=== PATIENT | male | born 2000 | race Hispanic/Latino ===

== ENCOUNTER 2024-10-04 21:18 | Emergency (ER) | payer SELFPAY ==
[2024-10-04 21:22] VITALS: BP 113/91; PULSE 75; RESP 17; TEMP 36.3; O2SAT 100
[2024-10-04 21:42] LABS: Basophils Percent Auto 0.4 % (0.2-1.2); Eosinophils Absolute Auto 0.1 K/mm3 (0-0.3); Eosinophils Percent Auto 1.9 % (0-4.4); Hematocrit 44.3 % (42.0-52.0); Immature Granulocyte Absolute 0.02 K/mm3 (0.00-0.031); Immature Granulocyte Percent A 0.3 % (0-0.5); Lymphocytes Absolute Auto 2.91 K/mm3 (0.9-3.2); Lymphocytes Percent Auto 40.5 % (18.3-44.2); Mean Corpuscular HGB Conc 36.1 g/dl (32-36); Mean Corpuscular Hemoglobin 31.4 pg (26-34); Mean Platelet Volume 9.2 fl (7.4-10.4); Monocytes Absolute Auto 0.6 K/mm3 (0.1-0.6); Monocytes Percent Auto 8.9 % (2.6-8.5); Neutrophils Absolute Auto 3.5 K/mm3 (1.3-6.7); Platelet Count Result 283 k/mm3 (150-375); Red Blood Count 5.09 M/mm3 (4.6-6.20); Red Cell Distribution Width 11.2 % (11.5-14.5); White Blood Count 7.2 K/mm3 (4.5-10.0)
[2024-10-04 21:50] LABS: Add Urine Microscopic? YES; Appearance Urine Turbid (Clear); Bacteria Urine None Seen /hpf; Bilirubin Urine Negative (Negative); Blood Urine Negative (Negative); Color Urine Yellow (Yellow); Glucose Urine UA Negative (Negative); Ketones Urine Trace mg/dL (Negative); Leukocyte Esterase Ur Negative LEU/UL (Negative); Nitrate Urine Negative (Negative); Non Pathogenic Casts 0-2; Protein Urine Negative (Negative); RBC Urine 0-2 /hpf (0-2); Specific Grav Ur 1.019 (1.001-1.035); Squamous Epithelial Cell Urine None Seen /hpf (Few); WBC Urine 0-5 /hpf (0-3)
[2024-10-04 21:53] LABS: Alanine Aminotransferase 20 U/L (6-50); Albumin Level 5.2 g/dL (3.5-5.1); Alkaline Phosphatase 80 U/L (38-126); Anion Gap 16 mmol/L (4-12); Aspartate Amino Transferase 31 U/L (17-59); Bilirubin,Total 1.3 mg/dL (0.2-1.3); Blood Urea Nitrogen 19 mg/dL (9-20); Calcium 9.9 mg/dL (8.4-10.2); Carbon Dioxide 22 mmol/L (22-30); Chloride 104 mmol/L (98-107); Estimated CRCL calculation 118 ml/min; Estimated Glomerular Filt Rate > 60; Glucose 98 mg/dL (65-110); Lipase 87 U/L (23-300); Potassium 3.6 mmol/L (3.4-5.0); Sodium 142 mmol/L (137-145)
[2024-10-05 01:29] VITALS: BP 117/87; PULSE 71; RESP 19; O2SAT 99
--- NOTE | 2024-10-05 02:43 | ED.GENADULT ---
HPI - General Adult General Chief complaint: Abdominal Pain Stated complaint: rt abd pain Time Seen by Provider: 10/05/24 01:25 History of Present Illness HPI narrative: Patient is a 24-year-old gentleman presents emergency department chief complaint of abdominal pain. The patient reports the last week he has been having pain in the left lower quadrant patient states got worse today the patient reports he has been treated for gastritis before in the past and reports that he had an issue of inflamed bowels whenever he was treated in [place] 2 years ago Related Data Allergies Allergy/AdvReac Type Severity Reaction Status Date / Time No Known Allergies Allergy Verified 10/04/24 21:26 Review of Systems Review of Systems: A 10 system review of systems was completed on the patient and is negative except for what is stated in the HPI. Nursing and ancillary documentation was reviewed. Exam Narrative: GENERAL: Well-appearing, well-nourished, and in no acute distress. HEAD: Normocephalic, atraumatic. EYES: PERRLA and EOMI. ENT: Nares clear, no rhinorrhea or epistaxis. Mucous membranes moist. NECK: Supple. CHEST: Clear to auscultation. No respiratory distress. HEART: Regular rate and rhythm. No murmur heard. Normal peripheral pulses. ABDOMEN: Soft, tenderness to palpation left lower quad, nondistended, normal active bowel sounds. EXTREMITIES: Normal range of motion. No edema. SKIN: Warm, dry, no rash. NEURO: No focal deficits. Alert and oriented x3. PSYCH: Normal mood and affect. Course Vital Signs Vital signs: Vital Signs Temperature 36.3 C L 10/04/24 21:22 Pulse Rate 75 10/04/24 21:22 Respiratory Rate 17 10/04/24 21:22 Blood Pressure 113/91 H 10/04/24 21:22 Pulse Oximetry 100 10/04/24 21:22 Oxygen Delivery Room Air 10/04/24 21:22 Temperature 36.3 C L 10/04/24 21:22 Pulse Rate 68 10/05/24 04:05 Respiratory Rate 15 10/05/24 04:05 Blood Pressure 120/83 10/05/24 04:05 Pulse Oximetry 100 10/05/24 04:05 Oxygen Delivery Room Air 10/04/24 21:22 Medical Decision Making [facility] Narrative Medical decision making narrative: Differential diagnosis includes diverticulitis, colitis, intra-abdominal infection, pancreatitis Laboratory studies were obtained on the patient that showed no significant abnormality CT scan of the abdomen pelvis showed no acute abnormality Vital Signs Vital Signs: Vital Signs Temperature 36.3 C L 10/04/24 21:22 Pulse Rate 75 10/04/24 21:22 Respiratory Rate 17 10/04/24 21:22 Blood Pressure 113/91 H 10/04/24 21:22 Pulse Oximetry 100 10/04/24 21:22 Oxygen Delivery Room Air 10/04/24 21:22 Temperature 36.3 C L 10/04/24 21:22 Pulse Rate 68 10/05/24 04:05 Respiratory Rate 15 10/05/24 04:05 Blood Pressure 120/83 10/05/24 04:05 Pulse Oximetry 100 10/05/24 04:05 Oxygen Delivery Room Air 10/04/24 21:22 Lab Data 10/04/24 21:31 10/04/24 21:31 Labs: Lab Results 10/04/24 10/04/24 Range/Units 21:31 21:35 WBC 7.2 (4.5-10.0) K/mm3 RBC 5.09 (4.6-6.20) M/mm3 Hgb 16.0 (14.0-18.0) g/dL Hct 44.3 (42.0-52.0) % MCV 87.0 (80-100) fl MCH 31.4 (26-34) pg MCHC 36.1 H (32-36) g/dl RDW 11.2 L (11.5-14.5) % Plt Count 283 (150-375) k/mm3 MPV 9.2 (7.4-10.4) fl Immature Gran % (Auto) 0.3 (0-0.5) % Neut % (Auto) 48.0 (45.5-73.1) % Lymph % (Auto) 40.5 (18.3-44.2) % Stewart % (Auto) 8.9 H (2.6-8.5) % Eos % (Auto) 1.9 (0-4.4) % Baso % (Auto) 0.4 (0.2-1.2) % Lymph # (Auto) 2.91 (0.9-3.2) K/mm3 Stewart # (Auto) 0.6 (0.1-0.6) K/mm3 Eos # (Auto) 0.1 (0-0.3) K/mm3 Baso # (Auto) 0.0 (0.0-0.1) K/mm3 Abs Immat Gran (auto) 0.02 (0.00-0.031) K/mm3 Absolute Neuts (auto) 3.5 (1.3-6.7) K/mm3 Absolute Nucleated RBC 0.000 (0.0-0.012) K/mm3 Nucleated RBC % 0.0 (0.0-0.2) % Sodium 142 (137-145) mmol/L Potassium 3.6 (3.4-5.0) mmol/L Chloride 104 (98-107) mmol/L Carbon Dioxide 22 (22-30) mmol/L Anion Gap 16 H (4-12) mmol/L BUN 19 (9-20) mg/dL Creatinine 0.68 L (0.7-1.3) mg/dL Estim Creat Clear Calc 118 ml/min Estimated GFR > 60 (59 - ) Glucose 98 (65-110) mg/dL Calcium 9.9 (8.4-10.2) mg/dL Total Bilirubin 1.3 (0.2-1.3) mg/dL AST 31 (17-59) U/L ALT 20 (6-50) U/L Alkaline Phosphatase 80 (38-126) U/L Total Protein 9.0 H (6.3-8.2) g/dL Albumin 5.2 H (3.5-5.1) g/dL Lipase 87 (23-300) U/L Urine Color Yellow (Yellow) Urine Appearance Turbid H (Clear) Urine pH 8.0 (5.0-9.0) Ur Specific [place] 1.019 (1.001-1.035) Urine Protein Negative (Negative) mg/dL Urine Glucose (UA) Negative (Negative) mg/dL Urine Ketones Trace H (Negative) mg/dL Ur Blood (Man) Negative (Negative) Urine Nitrate Negative (Negative) Urine Bilirubin Negative (Negative) Urine Urobilinogen 1.0 (<2.0) mg/dL Leukocyte Esterase Rfl Negative (Negative) SOPHIE/UL Urine RBC 0-2 (0-2) /hpf Urine WBC 0-5 (0-3) /hpf Ur Squamous Epith Cells None seen (Few) /hpf Urine Bacteria None seen /hpf Urine Casts 0-2 Discharge Plan Discharge Clinical Impression: Abdominal pain Patient Disposition: Home, Self-Care Condition: Stable Instructions: Antibiotic Form, Abdominal Pain (ED) Patient Language: Canadian Prescriptions: New dicyclomine 20 mg tablet 20 mg PO QID PRN (Reason: abdominal discomfort) Qty: 20 0RF ondansetron 4 mg tablet,disintegrating 4 mg PO Q8H PRN (Reason: nausea and vomiting) Qty: 10 0RF pantoprazole [Protonix] 40 mg tablet,delayed release (DR/EC) 40 mg PO HS 28 Days Qty: 28 0RF Follow-up/Referrals: PHYSICIAN,[employer] [Primary Care Provider] - Meliton King MD [Physician] - Time of Disposition: 05:28
[2024-10-05 04:05] VITALS: BP 120/83; PULSE 68; RESP 15; O2SAT 100
[2024-10-05 05:53] VITALS: BP 116/84; PULSE 65; RESP 19; O2SAT 99
== END 2024-10-05 05:56 | disposition home or self-care (01) ==
PROVIDERS: Emergency Provider Emergency Medicine
DX: R10.32 Left lower quadrant pain (principal)
CPT/HCPCS: 36415; 74177; 80053; 81001; 83690; 85025; 99284; Q9967

== ENCOUNTER 2025-08-01 01:51 | Emergency (ER) | payer SELFPAY ==
[2025-08-01 01:52] VITALS: BP 117/68; PULSE 100; RESP 18; TEMP 36.9; O2SAT 97
[2025-08-01 01:59] VITALS: BP 126/77; PULSE 92; RESP 18; TEMP 37.7; O2SAT 100
--- NOTE | 2025-08-01 02:21 | ED_ITS ---
HPI - General Adult General Chief complaint: Dental/Oral Stated complaint: Throat irritation, fever, mouth sores, flu? Time Seen by Provider: 08/01/25 01:58 History of Present Illness HPI narrative: 25-year-old otherwise healthy male presenting to the emergency depart with sore throat, pain in his left side throat tonsils as well as exposure to sick contacts with flu-like symptoms. Symptoms going on with 2 days time. States he has had fever at home responsive to Tylenol. States he had some sweats earlier but that resolved. No other symptoms such as cough, shortness a breath, nausea, vomiting, headache, vision changes. He noticed some sores in the back of his mouth on the left tonsil. Some pain with swallowing from this. Was otherwise in his normal state of health. No rash in his arms legs face or back. Related Data Allergies Allergy/AdvReac Type Severity Reaction Status Date / Time No Known Allergies Allergy Verified 08/01/25 01:57 Review of Systems Review of Systems: As reviewed above in HPI All systems reviewed & are unremarkable except as noted in HPI and below Exam Narrative: GENERAL: [Well-appearing, well-nourished, and in no acute distress.] HEAD: [Normocephalic, atraumatic.] EYES: [PERRLA and EOMI.] ENT: Posterior oropharyngeal erythema without any exudates but there are some stippled small white ulcers on the left tonsillar pillar. No bleeding. Swallowing without difficulty. No phonation changes or trismus. No lymphadenopathy in the neck or restricted range of motion. NECK: Supple. CHEST: [Clear to auscultation. No respiratory distress.] HEART: [Regular rate and rhythm]. No murmur heard. [Normal peripheral pulses.] ABDOMEN: [Soft, nondistended], [nontender], [No rigidity or guarding] EXTREMITIES: Normal range of motion. [No edema.] SKIN: Warm, dry, no rash. NEURO: [No focal deficits]. Alert and oriented [x3.] PSYCH: [Normal mood and affect.] Course Vital Signs Vital signs: Vital Signs Temperature 36.9 C 08/01/25 01:52 Pulse Rate 100 08/01/25 01:52 Respiratory Rate 18 08/01/25 01:52 Blood Pressure 117/68 08/01/25 01:52 Pulse Oximetry 97 08/01/25 01:52 Oxygen Delivery Room Air 08/01/25 01:52 Temperature 37.7 C H 08/01/25 01:59 Pulse Rate 89 08/01/25 03:55 Respiratory Rate 16 08/01/25 03:55 Blood Pressure 102/53 L 08/01/25 03:55 Pulse Oximetry 99 08/01/25 03:55 Oxygen Delivery Room Air 08/01/25 01:52 [facility] Narrative Medical decision making narrative: 25-year-old otherwise healthy male presenting to the emergency depart with sore throat, pain in his left side throat tonsils as well as exposure to sick contacts with flu-like symptoms. Symptoms going on with 2 days time. States he has had fever at home responsive to Tylenol. States he had some sweats earlier but that resolved. No other symptoms such as cough, shortness a breath, nausea, vomiting, headache, vision changes. He noticed some sores in the back of his mouth on the left tonsil. Some pain with swallowing from this. Was otherwise in his normal state of health. No rash in his arms legs face or back. Posterior oropharyngeal erythema without any exudates but there are some stippled small white ulcers on the left tonsillar pillar. No bleeding. Swallowing without difficulty. No phonation changes or trismus. No lymphadenopathy in the neck or restricted range of motion. Patient is borderline febrile 37.7. No tachycardia, hypoxemia or blood pressure concerns. Most likely viral in nature could be COVID, flu, RSV. Possibility of [id number] disease but does not have any classical rash. Low suspicion tonsillitis or strep throat. Swabs were obtained and he was given Magic mouthwash for his pain as well as Toradol for analgesia and fever control. Will be discharged upon completion of workup with conservative management instructions and return precautions as well as follow-up instructions. Patient tested positive for influenza. Tamiflu sent to his pharmacy. Differential Diagnosis Differential Diagnosis: Most likely viral in nature could be COVID, flu, RSV. Possibility of [id number] disease but does not have any classical rash. Low suspicion tonsillitis or strep throat. Lab Data [facility] Lab Attestation statement: I personally reviewed the patient's lab results. Labs: Lab Results 08/01/25 Range/Units 02:02 Influenza A (RT-PCR) Positive A (Negative) Influenza B (RT-PCR) Negative (Negative) RSV (RT-PCR) Negative (Negative) SARS-CoV-2 RNA (RT-PCR) Negative (Negative) Group A Strep (PCR) Not detected (Negative) Discharge Plan Discharge Clinical Impression: Influenza A Patient Disposition: Home Condition: Stable Instructions: Antibiotic Form, Influenza (DC) Additional Instructions: Tested positive for influenza. Take Tylenol and ibuprofen every 6-8 hours for fever and pain control. We have given you prescription medication that can shorten the duration and symptoms of flu if you wish to take it although it does have some side effects that he should speak to the pharmacist about when picking it up. Patient Language: Greek Prescriptions: New oseltamivir [Tamiflu] 75 mg capsule 75 mg PO Q12H 5 Days Qty: 10 0RF No Action dicyclomine 20 mg tablet 20 mg PO QID PRN (Reason: abdominal discomfort) Qty: 20 0RF ondansetron 4 mg tablet,disintegrating 4 mg PO Q8H PRN (Reason: nausea and vomiting) Qty: 10 0RF pantoprazole [Protonix] 40 mg tablet,delayed release (DR/EC) 40 mg PO HS 28 Days Qty: 28 0RF Follow-up/Referrals: PHYSICIAN,[employer] [Primary Care Provider, Internal Medicine] Time of Disposition: 03:04
[2025-08-01 02:32] LABS: Strep Group A RT-PCR NOT DETECTED (Negative)
[2025-08-01 02:44] LABS: Influenza A QL RT-PCR Positive (Negative); Influenza B QL RT-PCR Negative (Negative); RSV RNA, RT-PCR Negative (Negative); SARS-CoV-2 RNA PCR Negative (Negative)
[2025-08-01] MEDS: KETOROLAC 30 MG/ML VIAL (*BKC) 15 MG IM (03:05)
[2025-08-01] MEDS: LIDOCAINE 2% VISC SOLN 30 ML, ALUMINUM/MAGNESIUM/SIMETH SUSP 30 ML, diphenhydrAMINE HCl... PO (03:40)
[2025-08-01 03:55] VITALS: BP 102/53; PULSE 89; RESP 16; O2SAT 99
== END 2025-08-01 03:55 | disposition home or self-care (01) ==
PROVIDERS: Emergency Provider Student in an Organized Health Care Education/Training Program
DX: J10.1 Influenza due to other identified influenza virus with other respiratory manifestations (principal); Z20.822 Contact with and (suspected) exposure to COVID-19
CPT/HCPCS: 87637; 87651; 96372; 99283; A9270; J1885